=== PATIENT | female | born 1975 | race African-American/Black ===

== ENCOUNTER 2019-08-14 21:59 | Emergency (ER) | payer OTHER ==
[~2019-08-14] VITALS: Ht 154.9 cm; Wt 112.5 kg
[~2019-08-14 21:59] MED LIST: BUTALB-APAP-CA1 EACH PO; GLUCOTROL5 MG; JANUMET 50-5001 EACH; LISINOPRIL20 MG
[2019-08-14] MEDS ORDERED: ASA81BEC PO (22:07)
[2019-08-14] MEDS ORDERED: VITAMIN D3125 MC2 PO (22:07)
[2019-08-14] MEDS ORDERED: ISOSORBIDE MONO30 M1 PO (22:08)
[2019-08-14] MEDS ORDERED: LISINOPRIL10 MG PO (22:08)
[2019-08-14] MEDS ORDERED: NORCO 5-325 TA1 EAC1 PO (22:08)
[2019-08-14] MEDS ORDERED: JANUVIA100 MG PO (22:08)
[2019-08-14] MEDS ORDERED: METFORMIN HCL500 M3 PO (22:08)
[2019-08-14] MEDS ORDERED: ONDANSETRON ODT4 MG PO (22:09)
[2019-08-14] MEDS ORDERED: PRAVACHOL 20 MG20 M1 PO (22:09)
[2019-08-14] MEDS ORDERED: PROTONIX40 M2 PO (22:09)
[2019-08-14] MEDS ORDERED: TOPROL XL100 MG PO (22:09)
[2019-08-14] MEDS ORDERED: TRULICITY0.75 MG/0. SUBQ (22:10)
[2019-08-14] MEDS ORDERED: TRAMADOL 50 MG50 MG PO (22:51)
[2019-08-14] MEDS ORDERED: NAPROSYN500 MG PO (22:51)
[2019-08-14 23:23] VITALS: BP 128/86
== END 2019-08-14 23:24 | disposition home or self-care (01) ==
LOC: ER 21:59
DX: R10.12 Left upper quadrant pain (principal); R10.13 Epigastric pain; I10 Essential (primary) hypertension; E66.01 Morbid (severe) obesity due to excess calories; K21.9 Gastro-esophageal reflux disease without esophagitis; Z68.42 Body mass index [BMI] 45.0-49.9, adult; Z90.49 Acquired absence of other specified parts of digestive tract; Z98.890 Other specified postprocedural states; Z91.040 Latex allergy status

== ENCOUNTER 2020-05-18 19:31 | Emergency (ER) | payer OTHER ==
[~2020-05-18] VITALS: Ht 154.9 cm; Wt 111.6 kg
[~2020-05-18 19:31] MED LIST changes: +ASA81BEC PO; +ISOSORBIDE MONO30 M1 PO; +JANUVIA100 MG PO; +LISINOPRIL10 MG PO; +METFORMIN HCL500 M3 PO; +NAPROSYN500 MG PO; +NORCO 5-325 TA1 EAC1 PO; +ONDANSETRON ODT4 MG PO; +PRAVACHOL 20 MG20 M1 PO; +PROTONIX40 M2 PO; +TOPROL XL100 MG PO; +TRAMADOL 50 MG50 MG PO; +TRULICITY0.75 MG/0. SUBQ; +VITAMIN D3125 MC2 PO
[2020-05-18 20:43] LABS: ABSOLUTE NEUTROPHILS 6.8 thou/uL (1.4-8.2); BASOPHILS 0.4 % (0.0-2.0); EOSINOPHILS 1.5 % (0.0-3.0); HEMATOCRIT 37.5 % (37.0-47.0); HEMOGLOBIN 11.8 gm/dL (12.0-15.0); MCH 28.3 pg (26.0-34.0); MCHC 31.5 g/dL (28.0-37.0); MCV 90.1 fL (80.0-100.0); MONOCYTES 4.2 % (1.0-8.0); PLATELET COUNT 235 thou/uL (150-400); POLYS 84.9 % (36.0-66.0); RBC 4.17 mil/uL (4.20-5.00); RDW 16.6 % (10.5-14.5)
[2020-05-18 20:46] LABS: CALCIUM 10.7 mg/dL (8.5-10.1); CREATININE 0.9 mg/dL (0.6-1.0)
[2020-05-18 20:52] LABS: TOTAL BILIRUBIN 0.4 mg/dL (0.2-1.0); TOTAL PROTEIN 8.3 g/dL (6.4-8.2)
[2020-05-18 21:22] VITALS: BP 132/77
--- NOTE | 2020-05-19 08:08 | EKG ---
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
== END 2020-05-18 21:27 | disposition home or self-care (01) ==
LOC: ER 19:31
PROVIDERS: Emergency Medicine
DX: R19.7 Diarrhea, unspecified (principal); J06.9 Acute upper respiratory infection, unspecified; I10 Essential (primary) hypertension; I25.2 Old myocardial infarction; Z79.82 Long term (current) use of aspirin; Z79.899 Other long term (current) drug therapy; Z91.040 Latex allergy status; Z20.822 Contact with and (suspected) exposure to COVID-19

== ENCOUNTER 2020-08-08 12:11 | Emergency (ER) | payer OTHER ==
[~2020-08-08] VITALS: Ht 154.9 cm; Wt 111.1 kg
[2020-08-08] MEDS ORDERED: CLOPIDOGREL75 MG PO (12:32)
[2020-08-08] MEDS ORDERED: CETIRIZINE HCL10 MG PO (12:32)
[2020-08-08] MEDS ORDERED: GLIPIZIDE5 MG PO (12:32)
[2020-08-08] MEDS ORDERED: NORVASC5 MG PO (12:32)
[2020-08-08] MEDS ORDERED: LIPITOR 40 MG T40 M1 PO (12:33)
[2020-08-08 13:19] LABS: URINE BILIRUBIN NEGATIVE (Negative); URINE BLOOD NEGATIVE (Negative); URINE CLARITY CLEAR; URINE COLOR YELLOW; URINE GLUCOSE-RANDOM* NEGATIVE (Negative); URINE KETONES NEGATIVE (Negative); URINE LEUKOCYTES-REFLEX NEGATIVE (Negative); URINE NITRITE-REFLEX NEGATIVE (Negative); URINE PROTEIN (DIPSTICK) NEGATIVE (Negative); URINE UROBILINOGEN 0.2 E.U./dl (0.2-1.0)
[2020-08-08 13:23] LABS: ABSOLUTE NEUTROPHILS 3.6 thou/uL (1.4-8.2); EOSINOPHILS 1.6 % (0.0-3.0); HEMATOCRIT 32.4 % (37.0-47.0); HEMOGLOBIN 10.3 gm/dL (12.0-15.0); LYMPHOCYTES 34.4 % (24.0-44.0); MCHC 31.8 g/dL (28.0-37.0); MCV 88.3 fL (80.0-100.0); MONOCYTES 6.1 % (1.0-8.0); PLATELET COUNT 229 thou/uL (150-400); POLYS 56.9 % (36.0-66.0); RBC 3.67 mil/uL (4.20-5.00); RDW 16.3 % (10.5-14.5); WBC 6.3 thou/uL (4.0-11.0)
[2020-08-08 13:26] LABS: CALCIUM 9.8 mg/dL (8.5-10.1); POTASSIUM 3.7 mmol/L (3.5-5.1)
[2020-08-08 13:36] LABS: ALBUMIN 3.4 g/dL (3.4-5.0); TOTAL BILIRUBIN 0.3 mg/dL (0.2-1.0); TOTAL PROTEIN 7.3 g/dL (6.4-8.2)
[2020-08-08] MEDS ORDERED: AUGMENTIN 875-1 EACH PO (15:14)
[2020-08-08] MEDS ORDERED: ZOFRAN ODT4 MG PO (15:14)
[2020-08-08] MEDS ORDERED: NORCO5 PO (15:14)
[2020-08-08 15:26] VITALS: BP 153/92
== END 2020-08-08 15:20 | disposition home or self-care (01) ==
LOC: ER 12:11
PROVIDERS: Nurse Practitioner Family
DX: D25.9 Leiomyoma of uterus, unspecified (principal); I10 Essential (primary) hypertension; I25.2 Old myocardial infarction; Z98.51 Tubal ligation status; Z95.5 Presence of coronary angioplasty implant and graft; Z79.82 Long term (current) use of aspirin; Z79.899 Other long term (current) drug therapy; Z91.040 Latex allergy status

== ENCOUNTER 2020-08-09 23:05 | Emergency (ER) | payer OTHER ==
[~2020-08-09] VITALS: Ht 154.9 cm; Wt 111.1 kg
[~2020-08-09 23:05] MED LIST changes: +AUGMENTIN 875-1 EACH PO; +CETIRIZINE HCL10 MG PO; +CLOPIDOGREL75 MG PO; +GLIPIZIDE5 MG PO; +LIPITOR 40 MG T40 M1 PO; +NORCO5 PO; +NORVASC5 MG PO; +ZOFRAN ODT4 MG PO
[2020-08-10 00:31] VITALS: BP 134/83
== END 2020-08-10 01:05 | disposition home or self-care (01) ==
LOC: ER 23:05
DX: M79.674 Pain in right toe(s) (principal); M79.89 Other specified soft tissue disorders; M79.671 Pain in right foot; I25.2 Old myocardial infarction; I10 Essential (primary) hypertension; Z95.5 Presence of coronary angioplasty implant and graft; Z98.51 Tubal ligation status; Z79.2 Long term (current) use of antibiotics; Z79.899 Other long term (current) drug therapy; Z79.82 Long term (current) use of aspirin; Z91.040 Latex allergy status; W22.8XXA Striking against or struck by other objects, initial encounter; Y93.89 Activity, other specified; Y92.89 Other specified places as the place of occurrence of the external cause; Y99.8 Other external cause status

== ENCOUNTER 2020-08-13 09:44 | Emergency (ER) | payer OTHER ==
[~2020-08-13] VITALS: Ht 154.9 cm; Wt 110.7 kg
--- NOTE | ~2020-08-13 | EKG ---
[address] [address] [place] [address] ELECTROCARDIOGRAM REPORT Name: SINGH WOODSY Jostin [facility] #: [facility] [id number] Admission: 08/13/20 Attend Phys: Discharge: Date of : 71 Report #: [id number] [facility] ED Test Date: 2020-08-13 Test Time: 10:35:38 Pat Name: MYLA WOODS Department: Room: Gender: F Documentation Specialist: NOELLE : 1975 Requested By: Alejandro Silver Order Number: [id number] MD: Measurements Intervals [place] Rate: 64 P: 68 ND: 170 QRS: 32 QRSD: 96 T: 37 QT: 393 QTc: 406 Interpretive Statements Sinus rhythm Probable left atrial enlargement Probable anterior infarct, old Compared to ECG 05/18/2020 19:50:25 Myocardial infarct finding now present Sinus tachycardia no longer present T-wave abnormality no longer present [email or web address] By: [id number] Charla Dunham MD /EPI
[2020-08-13] MEDS ORDERED: LISINOPRIL10 MG PO (10:02)
[2020-08-13 11:31] LABS: URINE BILIRUBIN NEGATIVE (Negative); URINE BLOOD NEGATIVE (Negative); URINE CLARITY CLEAR; URINE COLOR YELLOW; URINE GLUCOSE-RANDOM* NEGATIVE (Negative); URINE KETONES NEGATIVE (Negative); URINE LEUKOCYTES-REFLEX NEGATIVE (Negative); URINE NITRITE-REFLEX NEGATIVE (Negative); URINE PROTEIN (DIPSTICK) TRACE (Negative)
[2020-08-13 11:49] LABS: BASOPHILS 0.3 % (0.0-2.0); EOSINOPHILS 0.4 % (0.0-3.0); HEMATOCRIT 31.6 % (37.0-47.0); HEMOGLOBIN 10.1 gm/dL (12.0-15.0); LYMPHOCYTES 38.3 % (24.0-44.0); MCH 28.3 pg (26.0-34.0); MCV 88.3 fL (80.0-100.0); MONOCYTES 9.1 % (1.0-8.0); PLATELET COUNT 198 thou/uL (150-400); POLYS 51.9 % (36.0-66.0); RBC 3.57 mil/uL (4.20-5.00); RDW 16.6 % (10.5-14.5); WBC 3.8 thou/uL (4.0-11.0)
[2020-08-13 11:58] LABS: CALCIUM 9.4 mg/dL (8.5-10.1); CREATININE 0.7 mg/dL (0.6-1.0); POTASSIUM 3.2 mmol/L (3.5-5.1)
[2020-08-13 12:05] LABS: ALBUMIN 3.2 g/dL (3.4-5.0); TOTAL BILIRUBIN 0.3 mg/dL (0.2-1.0); TOTAL PROTEIN 7.1 g/dL (6.4-8.2)
[2020-08-13 14:56] VITALS: BP 124/72
== END 2020-08-13 14:56 | disposition home or self-care (01) ==
LOC: ER 09:44
PROVIDERS: Emergency Medicine
DX: M79.18 Myalgia, other site (principal); E87.6 Hypokalemia; E83.42 Hypomagnesemia; R10.13 Epigastric pain; I25.2 Old myocardial infarction; I10 Essential (primary) hypertension; Z91.040 Latex allergy status; Z79.899 Other long term (current) drug therapy; Z79.82 Long term (current) use of aspirin; Z98.51 Tubal ligation status

== ENCOUNTER 2020-12-24 22:51 | Emergency (ER) | payer OTHER ==
[~2020-12-24] VITALS: Ht 154.9 cm; Wt 110.7 kg
[2020-12-24] MEDS ORDERED: TUSSIN COU15 MG/5 M1 PO (23:43)
[2020-12-24] MEDS ORDERED: PREDNISONE 20 M20 MG PO (23:43)
[2020-12-25] MEDS ORDERED: LISINOPRIL10 MG PO (00:44)
[2020-12-25 00:51] VITALS: BP 150/77
== END 2020-12-25 00:55 | disposition home or self-care (01) ==
LOC: ER 22:51
DX: R05 Cough (principal); I10 Essential (primary) hypertension; Z98.51 Tubal ligation status; Z79.82 Long term (current) use of aspirin; Z79.899 Other long term (current) drug therapy; Z91.040 Latex allergy status